=== PATIENT | male | born 1940 | race Caucasian/White ===

== ENCOUNTER 2019-02-21 06:26 | Day surgery (SDC) | payer MEDICARE ==
[~2019-02-21] VITALS: Ht 180.3 cm; Wt 78.0 kg
[~2019-02-21 06:26] MED LIST: ASPI-1393 PO; ESOM40CA PO; SIMV40TA5 PO; VALS80TA2 PO; ZOLP5TAB2 PO
[2019-02-21] MEDS ORDERED: LIDOCAINE HCL 1% 20ML VIAL (Pyxis) INJ ONE (07:48)
[2019-02-21] MEDS ORDERED: IODIXANOL 320MG/ML 100 ML BOTTLE IV ONE ×2 (07:48→09:09)
[2019-02-21] MEDS ORDERED: CLOP75TA4 MT (07:53)
[2019-02-21] MEDS ORDERED: VALS1TAB72 MT (07:53)
[2019-02-21] MEDS ORDERED: FENTANYL CITRATE/PF 50MCG/ML 2ML VIAL ONE (08:23)
[2019-02-21] MEDS ORDERED: MIDAZOLAM HCL 2 MG/2 ML VIAL ONE (08:23)
[2019-02-21] MEDS ORDERED: ATROPINE SULFATE 1MG/10ML SYR IV PRN (09:45)
[2019-02-21] MEDS ORDERED: ACETAMINOPHEN 325MG TABLET PO PRN (09:45)
[2019-02-21] MEDS ORDERED: ONDANSETRON HCL 4MG/2ML INJ IV PRN (09:45)
[2019-02-21] MEDS ORDERED: NICARDIPINE 100MCG/ML 10ML VIAL (CATH LAB) IV ONE (13:59)
[2019-02-21] MEDS ORDERED: NITROGLYCERIN 50MCG/ML 10ML VIAL (CATH LAB) IV ONE (13:59)
[2019-02-21] MEDS ORDERED: HEPARIN SODIUM 1,000 UNIT/1ML VIAL IV ONE (13:59)
== END 2019-02-21 13:20 | disposition home or self-care (01) ==
LOC: CCL 06:26
PROVIDERS: ATTEND Specialist
DX: I25.10 Atherosclerotic heart disease of native coronary artery without angina pectoris (principal); E78.5 Hyperlipidemia, unspecified; M06.9 Rheumatoid arthritis, unspecified; F51.04 Psychophysiologic insomnia; I10 Essential (primary) hypertension; K21.9 Gastro-esophageal reflux disease without esophagitis
CPT/HCPCS: 85347; 93458; 93571; 99152; 99153; C1769; C1887; C1893; J1644; J2250; J3010; J3490; Q9967